=== PATIENT | female | born 1985 | race Caucasian/White ===

== ENCOUNTER 2018-03-27 14:34 | Emergency (ER) | payer OTHER ==
[~2018-03-27] VITALS: Ht 154.9 cm; Wt 45.4 kg
== END 2018-03-27 20:05 | disposition home or self-care (01) ==
LOC: ER 14:34
DX: J02.9 Acute pharyngitis, unspecified (principal)

== ENCOUNTER 2019-03-27 13:31 | Emergency (ER) | payer OTHER ==
[~2019-03-27] VITALS: Ht 154.9 cm; Wt 44.9 kg
== END 2019-03-27 14:38 | disposition home or self-care (01) ==
LOC: ER 13:31
DX: K58.9 Irritable bowel syndrome, unspecified (principal)